=== PATIENT | male | born 1940 | race Caucasian/White ===

== ENCOUNTER → 2019-09-08 | Outpatient (CLI) | payer OTHER ==
[~2019-09-08] MED LIST: REGADENOSON 0.4 MG/5 ML SYRINGE ONE
== END | disposition home or self-care (01) ==
LOC: CFH 08:15
PROVIDERS: ATTEND Physician Assistant Medical
DX: I21.09 ST elevation (STEMI) myocardial infarction involving other coronary artery of anterior wall (principal); I10 Essential (primary) hypertension; I34.0 Nonrheumatic mitral (valve) insufficiency
CPT/HCPCS: 78452; 93017; A9502; J2785

== ENCOUNTER 2019-09-30 09:36 | Inpatient (IN) | payer MEDICARE, OTHER ==
[~2019-09-30] VITALS: Ht 177.8 cm; Wt 77.7 kg
[2019-09-30] MEDS ORDERED: SODIUM CHLORIDE 0.9% 1,000 ML IV SCH (11:00)
[2019-09-30 12:03] VITALS: BP 172/85
[2019-09-30] MEDS ORDERED: VERAPAMIL 2.5 MG/ML, 2ML ONE (12:16)
[2019-09-30] MEDS ORDERED: FENTANYL PF 100 MCG/2ML ONE (12:16)
[2019-09-30] MEDS ORDERED: MIDAZOLAM 1 MG/ML, 2ML ONE (12:16)
[2019-09-30] MEDS ORDERED: LIDOCAINE-MPF 1%, 5ML ONE (12:16)
[2019-09-30] MEDS ORDERED: HEPARIN 1,000 UNITS/ML, 10ML ONE (12:16)
[2019-09-30] MEDS ORDERED: FURO20TA3 PO (12:33)
[2019-09-30] MEDS ORDERED: TAMS-11 PO (12:33)
[2019-09-30] MEDS ORDERED: ATOR40TA78 PO (12:33)
[2019-09-30] MEDS ORDERED: ALBU90AE INH (12:33)
[2019-09-30] MEDS ORDERED: CYAN500T18 PO (12:33)
[2019-09-30] MEDS ORDERED: CLOP75TA PO (12:33)
[2019-09-30] MEDS ORDERED: ALEN70TA6 PO (12:33)
[2019-09-30] MEDS ORDERED: CARB1TAB47 PO (12:33)
[2019-09-30] MEDS ORDERED: CARV6.25 PO (12:33)
[2019-09-30] MEDS ORDERED: RIVA10TA2 PO (12:33)
[2019-09-30] MEDS ORDERED: ALBUTEROL SULFATE 2.5 MG/3 ML NPPB PRN (16:00)
[2019-09-30] MEDS ORDERED: NITROGLYCERIN SINGLE TAB 0.4 MG SL PRN (16:00)
[2019-09-30] MEDS ORDERED: ONDANSETRON 2MG/ML, 2ML IVPush PRN (16:00)
[2019-09-30] MEDS ORDERED: ACETAMINOPHEN 650 MG/20.3 ML UDC PO PRN (16:00)
[2019-09-30] MEDS ORDERED: morphine SULFATE 10 MG/ML, 1ML IV PRN (16:00)
[2019-09-30] MEDS ORDERED: BISACODYL 5 MG EC TABLET PO PRN (16:00)
[2019-09-30] MEDS ORDERED: NITROGLYCERIN 0.4 MG/SPRAY SL PRN (16:00)
[2019-09-30 16:41] VITALS: BP 154/82
[2019-09-30 17:27] LABS: CHOL/HDL RATIO 2.9; CHOLESTEROL, TOTAL 134 mg/dL (140-239); HDL CHOL % 34 % (26-37); HDL CHOLESTEROL (DIRECT) 46 mg/dL (40-60); LDL CHOLESTEROL,CALCULATED 68 mg/dL (54-169); LDL/HDL RATIO 1.5 (0.5-3.0); TRIGLYCERIDES 101 mg/dL (50-200); TROPONIN I 0.032 ng/mL (0.000-0.045); VLDL CHOLESTEROL 20 mg/dL (0-25)
[2019-09-30] MEDS ORDERED: NITROGLYCERIN OINT 2%, 1GM TP PRN (17:30)
[2019-09-30] MEDS ORDERED: HEPARIN 5,000 UNITS/ML, 1ML IV ONE (17:30)
[2019-09-30] MEDS ORDERED: HEPARIN 5,000 UNITS/ML, 1ML IV PRN (17:30)
[2019-09-30] MEDS: HEPARIN 25,000 UNITS/500ML PMX 500 ML IV PRN (17:55)
[2019-09-30] MEDS: ALENDRONATE 70 MG TABLET PO SCH (17:57)
[2019-09-30] MEDS: CARBIDOPA/LEVODOPA CR 25 MG/100 MG TABLET PO SCH ×2 (18:03→21:48)
[2019-09-30 20:06] LABS: TROPONIN I 0.353 ng/mL (0.000-0.045)
[2019-09-30] MEDS ORDERED: ATORVASTATIN 40 MG TABLET PO SCH (21:00)
[2019-09-30 21:38] VITALS: BP 123/71
[2019-09-30] MEDS: CARVEDILOL 6.25 MG TABLET PO SCH (21:49)
[2019-09-30] MEDS: SODIUM CHLORIDE FLUSH 10ML SYR IVF SCH (21:50)
[2019-09-30] MEDS: FUROSEMIDE 20 MG TABLET PO SCH (21:50)
[2019-09-30] MEDS: ATORVASTATIN 80 MG TABLET PO SCH (21:50)
[2019-10-01 00:28] VITALS: BP 106/63
[2019-10-01] MEDS: CARBIDOPA/LEVODOPA CR 25 MG/100 MG TABLET PO SCH ×4 (06:28→22:24)
[2019-10-01] MEDS: ASPIRIN 81 MG TABLET EC PO SCH (06:28)
[2019-10-01 07:07] VITALS: BP 125/65
[2019-10-01] MEDS: ALENDRONATE 70 MG TABLET PO SCH ×2 (08:12→17:21)
[2019-10-01] MEDS: TAMSULOSIN 0.4 MG CAP.ER.24H PO SCH (08:13)
[2019-10-01] MEDS: FUROSEMIDE 20 MG TABLET PO SCH ×2 (08:13→22:24)
[2019-10-01] MEDS: CARVEDILOL 6.25 MG TABLET PO SCH ×2 (08:13→22:24)
[2019-10-01] MEDS: CYANOCOBALAMIN 1,000 MCG TABLET PO SCH (08:14)
[2019-10-01] MEDS: SODIUM CHLORIDE FLUSH 10ML SYR IVF SCH ×2 (08:14→22:24)
[2019-10-01] MEDS ORDERED: OMEP40CA42 PO (12:48)
[2019-10-01] MEDS ORDERED: CARB1TAB47 PO (12:48)
[2019-10-01] MEDS ORDERED: CYAN500T54 PO (12:48)
[2019-10-01] MEDS ORDERED: CARB1TAB5 PO (12:48)
[2019-10-01] MEDS ORDERED: FURO20TA3 PO (12:48)
[2019-10-01] MEDS ORDERED: SENN8.6T98 PO (12:48)
[2019-10-01 13:45] VITALS: BP 118/64
[2019-10-01 18:44] VITALS: BP 114/66
[2019-10-01] MEDS: HEPARIN 25,000 UNITS/500ML PMX 500 ML IV PRN (19:30)
[2019-10-01] MEDS: ATORVASTATIN 80 MG TABLET PO SCH (22:24)
[2019-10-02 02:24] VITALS: BP 108/64
[2019-10-02 05:27] LABS: BASOPHILS # (AUTO) 0.02 x10^3/uL (0-0.1); BASOPHILS % (AUTO) 0 % (0-1); EOSINOPHILS % (AUTO) 3 % (1-7); LYMPHOCYTES # (AUTO) 1.07 x10^3/uL (1-3.4); LYMPHOCYTES % (AUTO) 28 % (22-44); MD NO; MEAN CORPUSCULAR HEMOGLOBIN 31.8 pg (27.5-34.5); MEAN CORPUSCULAR HGB CONC 33.2 g/dL (33.2-36.2); MEAN PLATELET VOLUME 7.8 fL (7.4-10.4); MONOCYTES # (AUTO) 0.48 x10^3/uL (0.2-0.8); MONOCYTES % (AUTO) 12 % (2-9); NEUTROPHILS # (AUTO) 2.23 x10^3/uL (1.8-6.8); NEUTROPHILS % (AUTO) 57 % (42-75); PLATELET COUNT 165 x10^3/uL (130-400); RED BLOOD COUNT 3.73 x10^6/uL (4.38-5.82); RED CELL DISTRIBUTION WIDTH 13.9 % (9.4-14.8)
[2019-10-02 05:40] LABS: ALBUMIN 3.4 g/dL (3.4-5.0); ANION GAP 6 mmol/L (5-15); CALCIUM 8.5 mg/dL (8.5-10.1); CHLORIDE 108 mmol/L (98-107)
[2019-10-02 05:44] LABS: ALANINE AMINOTRANSFERASE 10 U/L (12-78); ALKALINE PHOSPHATASE 79 U/L (45-117); BILIRUBIN,TOTAL 2.6 mg/dL (0.2-1.0); CREATININE 1.61 mg/dL (0.7-1.3); TOTAL PROTEIN 6.4 g/dL (6.4-8.2)
[2019-10-02] MEDS: CARBIDOPA/LEVODOPA CR 25 MG/100 MG TABLET PO SCH ×4 (06:35→20:23)
[2019-10-02] MEDS: ASPIRIN 81 MG TABLET EC PO SCH (06:35)
[2019-10-02 07:07] VITALS: BP 116/67
[2019-10-02] MEDS: SODIUM CHLORIDE FLUSH 10ML SYR IVF SCH ×2 (08:10→20:25)
[2019-10-02] MEDS: CARVEDILOL 6.25 MG TABLET PO SCH ×2 (08:10→20:24)
[2019-10-02] MEDS: TAMSULOSIN 0.4 MG CAP.ER.24H PO SCH (08:11)
[2019-10-02] MEDS: CYANOCOBALAMIN 1,000 MCG TABLET PO SCH (08:11)
[2019-10-02] MEDS: FUROSEMIDE 20 MG TABLET PO SCH ×2 (08:11→20:24)
[2019-10-02 14:12] VITALS: BP 95/57
[2019-10-02] MEDS ORDERED: OMNIPAQUE 350 MG/ML, 100ML BOTTLE ONE (15:11)
[2019-10-02] MEDS: HEPARIN 25,000 UNITS/500ML PMX 500 ML IV PRN (19:48)
[2019-10-02 20:15] VITALS: BP 134/64
[2019-10-02] MEDS: ATORVASTATIN 80 MG TABLET PO SCH (20:23)
[2019-10-03 02:54] VITALS: BP 124/75
[2019-10-03 05:05] LABS: ANION GAP 6 mmol/L (5-15); CALCIUM 8.5 mg/dL (8.5-10.1); CHLORIDE 106 mmol/L (98-107)
[2019-10-03] MEDS: ASPIRIN 81 MG TABLET EC PO SCH (05:54)
[2019-10-03] MEDS: CARBIDOPA/LEVODOPA CR 25 MG/100 MG TABLET PO SCH ×4 (05:55→20:10)
[2019-10-03 06:48] VITALS: BP 124/72
[2019-10-03] MEDS ORDERED: CHLORHEXIDINE 15 ML UDC MM PRN (07:00)
[2019-10-03] MEDS ORDERED: INSULIN LISPRO 100 UNITS/ML, PEN SQ-INSULIN SCH (07:00)
[2019-10-03] MEDS ORDERED: METOPROLOL TARTRATE 25 MG TABLET PO ONE (07:00)
[2019-10-03] MEDS ORDERED: VANCOMYCIN 1,100 MG in SODIUM CHLORIDE 0.9% 250 ML IV PRN (07:30)
[2019-10-03] MEDS: MUPIROCIN OINT 2%, 22GM TP SCH ×2 (07:34→23:24)
[2019-10-03 07:44] LABS: BASOPHILS # (AUTO) 0.02 x10^3/uL (0-0.1); BASOPHILS % (AUTO) 1 % (0-1); EOSINOPHILS # (AUTO) 0.09 x10^3/uL (0-0.4); EOSINOPHILS % (AUTO) 2 % (1-7); LYMPHOCYTES # (AUTO) 0.99 x10^3/uL (1-3.4); LYMPHOCYTES % (AUTO) 23 % (22-44); MD NO; MEAN CORPUSCULAR HEMOGLOBIN 31.5 pg (27.5-34.5); MEAN CORPUSCULAR HGB CONC 33.7 g/dL (33.2-36.2); MEAN CORPUSCULAR VOLUME 93.6 fL (81-97); MEAN PLATELET VOLUME 7.1 fL (7.4-10.4); MONOCYTES % (AUTO) 12 % (2-9); NEUTROPHILS # (AUTO) 2.64 x10^3/uL (1.8-6.8); NEUTROPHILS % (AUTO) 62 % (42-75); PLATELET COUNT 171 x10^3/uL (130-400); RED BLOOD COUNT 4.05 x10^6/uL (4.38-5.82); RED CELL DISTRIBUTION WIDTH 13.8 % (9.4-14.8)
[2019-10-03 07:53] LABS: ALANINE AMINOTRANSFERASE 9 U/L (12-78); ALBUMIN 3.6 g/dL (3.4-5.0); ANION GAP 4 mmol/L (5-15); CALCIUM 8.8 mg/dL (8.5-10.1); CHLORIDE 106 mmol/L (98-107); CREATININE 1.73 mg/dL (0.7-1.3)
[2019-10-03 07:56] LABS: ALKALINE PHOSPHATASE 88 U/L (45-117); BILIRUBIN,TOTAL 2.2 mg/dL (0.2-1.0); TOTAL PROTEIN 6.9 g/dL (6.4-8.2)
[2019-10-03 08:03] LABS: MICROSCOPIC NOT IND
[2019-10-03 08:15] LABS: INTERNATIONAL NORMALIZED RATIO 1.02 (0.93-1.1); PROTHROMBIN TIME 10.7 Seconds (9.6-11.5)
[2019-10-03] MEDS: SODIUM CHLORIDE FLUSH 10ML SYR IVF SCH ×4 (09:00→20:16)
[2019-10-03] MEDS: FUROSEMIDE 20 MG TABLET PO SCH ×2 (09:06→20:10)
[2019-10-03] MEDS: TAMSULOSIN 0.4 MG CAP.ER.24H PO SCH (09:06)
[2019-10-03] MEDS: CARVEDILOL 6.25 MG TABLET PO SCH ×2 (09:07→20:10)
[2019-10-03] MEDS: CYANOCOBALAMIN 1,000 MCG TABLET PO SCH (09:08)
[2019-10-03 14:00] VITALS: BP 98/58
[2019-10-03 14:20] VITALS: BP 104/51
[2019-10-03 18:56] VITALS: BP 99/59
[2019-10-03] MEDS: ATORVASTATIN 80 MG TABLET PO SCH (20:10)
[2019-10-03] MEDS: HEPARIN 25,000 UNITS/500ML PMX 500 ML IV PRN (20:23)
[2019-10-04 00:09] VITALS: BP 102/45
[2019-10-04 04:00] VITALS: BP_SYST 118; BP_SYST 128; BP_DIAS 61; BP_DIAS 68
[2019-10-04] MEDS: MUPIROCIN OINT 2%, 22GM TP SCH ×2 (04:14→05:08)
[2019-10-04] MEDS: ASPIRIN 81 MG TABLET EC PO SCH (05:15)
[2019-10-04] MEDS: CARBIDOPA/LEVODOPA CR 25 MG/100 MG TABLET PO SCH ×4 (05:44→22:33)
[2019-10-04] MEDS ORDERED: CEFUROXIME 1.5 GM in SODIUM CHLORIDE 0.9% 50 ML IVPB PRN (07:30)
[2019-10-04] MEDS ORDERED: REGULAR INSULIN 62.5 UNITS in SODIUM CHLORIDE 0.9% 249.375 ML IV PRN ×2 (07:30→12:18)
[2019-10-04] MEDS ORDERED: POTASSIUM CHLORIDE 80 MEQ, SODIUM BICARBONATE 8.4% 10 MEQ, MAGNESIUM SULFATE 0.5 GM, LI... IV PRN (07:30)
[2019-10-04] MEDS ORDERED: DEXMEDETOMIDINE 200 MCG in SODIUM CHLORIDE 0.9% 48 ML IV SCH (07:30)
[2019-10-04] MEDS ORDERED: EPINEPHRINE 2 MG in SODIUM CHLORIDE 0.9% 248 ML IV SCH (07:30)
[2019-10-04] MEDS ORDERED: MANNITOL PMX 20% 500 ML IVPB PRN (07:30)
[2019-10-04] MEDS ORDERED: VANCOMYCIN 1,100 MG in SODIUM CHLORIDE 0.9% 250 ML IVPB PRN (07:30)
[2019-10-04] MEDS ORDERED: ALBUMIN HUMAN 5% 500 ML IV PRN (07:30)
[2019-10-04] MEDS ORDERED: PHENYLEPHRINE 10 MG in SODIUM CHLORIDE 0.9% 249 ML IV PRN ×2 (07:30→12:18)
[2019-10-04] MEDS ORDERED: MAGNESIUM SULFATE 8 MEQ/2 ML, 2ML ONE (07:52)
[2019-10-04] MEDS ORDERED: PROPOFOL 10 MG/ML, 20ML ONE (07:52)
[2019-10-04] MEDS ORDERED: ROCURONIUM 10 MG/ML,10ML ONE (07:52)
[2019-10-04] MEDS ORDERED: PHENYLEPHRINE 10 MG/ML ONE (07:52)
[2019-10-04] MEDS: CYANOCOBALAMIN 1,000 MCG TABLET PO SCH (09:00)
[2019-10-04] MEDS: DOCUSATE 100 MG CAPSULE PO SCH ×2 (09:00→22:33)
[2019-10-04] MEDS: TAMSULOSIN 0.4 MG CAP.ER.24H PO SCH (09:00)
[2019-10-04] MEDS: CARVEDILOL 6.25 MG TABLET PO SCH ×2 (09:00→21:00)
[2019-10-04] MEDS ORDERED: HEPARIN 1,000 UNITS/ML, 10ML IV ONE (09:09)
[2019-10-04] MEDS ORDERED: PAPAVERINE 30 MG/ML, 2ML IVPush ONE (09:11)
[2019-10-04] MEDS ORDERED: MAGNESIUM SULFATE 1 GM/2 ML ONE (09:35)
[2019-10-04] MEDS ORDERED: AMIODARONE 900 MG in DEXTROSE 5% 482 ML IV PRN (10:00)
[2019-10-04] MEDS ORDERED: FILTER 0.22 MICRON IV PRN (10:00)
[2019-10-04] MEDS ORDERED: DOBUTAMINE 250 MG in SODIUM CHLORIDE 0.9% 230 ML IV PRN (12:18)
[2019-10-04] MEDS ORDERED: NITROGLYCERIN/D5W PMX 250 ML IV PRN (12:18)
[2019-10-04] MEDS ORDERED: SODIUM CHLORIDE 0.9% 1,000 ML IV PRN (12:18)
[2019-10-04] MEDS ORDERED: DEXMEDETOMIDINE 200 MCG in SODIUM CHLORIDE 0.9% 48 ML IV PRN (12:18)
[2019-10-04] MEDS ORDERED: VASOPRESSIN 50 UNIT in SODIUM CHLORIDE 0.9% 247.5 ML IV PRN (12:18)
[2019-10-04] MEDS ORDERED: ACETAMINOPHEN 325 MG TABLET PO PRN (12:30)
[2019-10-04] MEDS ORDERED: GLUCAGON 1 MG IM PRN (12:30)
[2019-10-04] MEDS ORDERED: DEXTROSE 4 GM TAB.CHEW PO PRN (12:30)
[2019-10-04] MEDS ORDERED: PROCHLORPERAZINE 5 MG/ML, 2ML IVPush PRN (12:30)
[2019-10-04] MEDS ORDERED: INSULIN REGULAR 100 UNITS/ML, 3ML VIAL IVPush PRN (12:30)
[2019-10-04] MEDS ORDERED: MIDAZOLAM 1 MG/ML, 5ML IVPush PRN (12:30)
[2019-10-04] MEDS ORDERED: morphine SULFATE 10 MG/ML, 1ML IVPush PRN (12:30)
[2019-10-04] MEDS ORDERED: DEXTROSE 50%, 50ML SYRINGE IVPush PRN (12:30)
[2019-10-04] MEDS ORDERED: ACETAMINOPHEN 650 MG SUPP PR PRN (12:30)
[2019-10-04] MEDS: KSCALE TO 4.5 IV SCH ×2 (12:30→18:30)
[2019-10-04] MEDS ORDERED: SODIUM BICARB 8.4%, 50ML SYRINGE IV PRN (12:30)
[2019-10-04] MEDS ORDERED: BISACODYL 10 MG SUPP PR PRN (12:30)
[2019-10-04] MEDS ORDERED: ONDANSETRON 2MG/ML, 2ML IVPush PRN (12:30)
[2019-10-04] MEDS ORDERED: LACTATED RINGERS 1,000 ML IV PRN (12:30)
[2019-10-04 12:56] LABS: GLUCOSE BY BLOOD GAS ANALYZER 171 mg/dL (70-110); HEMOGLOBIN BY BLOOD GAS ANALYZ 9.6 g/dL (14.0-18.0); POTASSIUM BY BLOOD GAS ANALYZR 3.9 mmol/L (3.6-5.5)
[2019-10-04 12:58] LABS: FIO2 97.9 %
[2019-10-04] MEDS: MAGNESIUM SULFATE 1 GM in SODIUM CHLORIDE 0.9% 50 ML IVPB SCH (13:00)
[2019-10-04 13:09] LABS: INTERNATIONAL NORMALIZED RATIO 1.25 (0.93-1.1)
[2019-10-04] MEDS ORDERED: POTASSIUM CHLORIDE PMX 100 ML IV ONE (14:00)
[2019-10-04] MEDS ORDERED: MORPHINE SULFATE 4 MG/ML, 1ML ONE (14:15)
[2019-10-04] MEDS: SODIUM CHLORIDE FLUSH 10ML SYR IVF SCH ×3 (14:29→19:56)
[2019-10-04] MEDS ORDERED: ALBUMIN HUMAN 5% 500 ML IV ONE ×2 (15:00→19:30)
[2019-10-04] MEDS: INSULIN LISPRO 100 UNITS/ML, PEN SQ-INSULIN SCH ×2 (16:00→21:00)
[2019-10-04] MEDS: VANCOMYCIN 1,100 MG in SODIUM CHLORIDE 0.9% 250 ML IVPB SCH (19:51)
[2019-10-04] MEDS: CEFUROXIME 1.5 GM in SODIUM CHLORIDE 0.9% 50 ML IVPB SCH (19:52)
[2019-10-04] MEDS: EPINEPHRINE 2 MG in SODIUM CHLORIDE 0.9% 248 ML IV PRN (20:27)
[2019-10-04] MEDS: OXYcodone IR 5MG TABLET PO PRN (20:37)
[2019-10-04] MEDS ORDERED: ALBUTEROL SULFATE 2.5 MG/3 ML NPPB PRN (21:30)
[2019-10-04] MEDS: ATORVASTATIN 80 MG TABLET PO SCH (22:33)
[2019-10-04] MEDS: MUPIROCIN OINT 2%, 22GM NAS SCH (22:34)
[2019-10-05] VITALS (10 sets, daily range): BP systolic 93–120; BP diastolic 40–77
[2019-10-05] MEDS: KSCALE TO 4.5 IV SCH ×2 (00:30→08:00)
[2019-10-05] MEDS: OXYcodone IR 5MG TABLET PO PRN ×3 (00:57→13:13)
[2019-10-05] MEDS: CARBIDOPA/LEVODOPA CR 25 MG/100 MG TABLET PO SCH ×4 (06:00→21:16)
[2019-10-05] MEDS: EPINEPHRINE 2 MG in SODIUM CHLORIDE 0.9% 248 ML IV PRN (07:36)
[2019-10-05 07:48] LABS: MEAN CORPUSCULAR HEMOGLOBIN 31.5 pg (27.5-34.5); MEAN CORPUSCULAR HGB CONC 34.3 g/dL (33.2-36.2); MEAN CORPUSCULAR VOLUME 91.8 fL (81-97); MEAN PLATELET VOLUME 7.8 fL (7.4-10.4); PLATELET COUNT 145 x10^3/uL (130-400); RED BLOOD COUNT 3.09 x10^6/uL (4.38-5.82); RED CELL DISTRIBUTION WIDTH 14.5 % (9.4-14.8)
[2019-10-05 07:52] LABS: ALBUMIN 3.3 g/dL (3.4-5.0); ANION GAP 8 mmol/L (5-15); CALCIUM 7.8 mg/dL (8.5-10.1); CHLORIDE 110 mmol/L (98-107); CREATININE 1.93 mg/dL (0.7-1.3)
[2019-10-05 08:19] LABS: BASOPHILS % (AUTO) 0 % (0-1); EOSINOPHILS % (AUTO) 0 % (1-7); LYMPHOCYTES # (AUTO) 0.36 x10^3/uL (1-3.4); LYMPHOCYTES % (AUTO) 3 % (22-44); MD SCAN; MONOCYTES # (AUTO) 1.41 x10^3/uL (0.2-0.8); MONOCYTES % (AUTO) 13 % (2-9); NEUTROPHILS # (AUTO) 9.43 x10^3/uL (1.8-6.8); NEUTROPHILS % (AUTO) 84 % (42-75)
[2019-10-05] MEDS: INSULIN LISPRO 100 UNITS/ML, PEN SQ-INSULIN SCH ×4 (08:21→21:00)
[2019-10-05] MEDS: DOCUSATE 100 MG CAPSULE PO SCH ×2 (08:23→21:15)
[2019-10-05] MEDS: HYDROcodone/APAP 5/325 TABLET PO PRN ×3 (08:23→21:58)
[2019-10-05] MEDS: CYANOCOBALAMIN 1,000 MCG TABLET PO SCH (08:23)
[2019-10-05] MEDS: ASPIRIN 81 MG TABLET EC PO SCH (08:23)
[2019-10-05] MEDS: CEFUROXIME 1.5 GM in SODIUM CHLORIDE 0.9% 50 ML IVPB SCH (08:28)
[2019-10-05] MEDS: CARVEDILOL 6.25 MG TABLET PO SCH ×2 (09:00→20:51)
[2019-10-05] MEDS ORDERED: CALCIUM CHLORIDE 13.6 MEQ in SODIUM CHLORIDE 0.9% 100 ML IV ONE (09:00)
[2019-10-05] MEDS: SODIUM CHLORIDE FLUSH 10ML SYR IVF SCH ×4 (09:30→21:15)
[2019-10-05] MEDS: VANCOMYCIN 1,100 MG in SODIUM CHLORIDE 0.9% 250 ML IVPB SCH (09:30)
[2019-10-05] MEDS: AMIODARONE 200 MG TABLET PO SCH ×2 (10:07→21:16)
[2019-10-05] MEDS: MUPIROCIN OINT 2%, 22GM NAS SCH ×2 (10:08→21:15)
[2019-10-05] MEDS: TAMSULOSIN 0.4 MG CAP.ER.24H PO SCH (11:50)
[2019-10-05] MEDS: MAGNESIUM SULFATE 1 GM in SODIUM CHLORIDE 0.9% 50 ML IVPB SCH (12:30)
[2019-10-05] MEDS: CHLORHEXIDINE 15 ML UDC MM SCH (21:15)
[2019-10-05] MEDS: ATORVASTATIN 80 MG TABLET PO SCH (21:16)
[2019-10-06 04:46] LABS: BASOPHILS # (AUTO) 0.01 x10^3/uL (0-0.1); BASOPHILS % (AUTO) 0 % (0-1); EOSINOPHILS % (AUTO) 0 % (1-7); LYMPHOCYTES # (AUTO) 0.41 x10^3/uL (1-3.4); LYMPHOCYTES % (AUTO) 7 % (22-44); MD NO; MEAN CORPUSCULAR HEMOGLOBIN 31.7 pg (27.5-34.5); MEAN CORPUSCULAR HGB CONC 34.2 g/dL (33.2-36.2); MEAN CORPUSCULAR VOLUME 92.7 fL (81-97); MEAN PLATELET VOLUME 7.9 fL (7.4-10.4); MONOCYTES # (AUTO) 0.75 x10^3/uL (0.2-0.8); MONOCYTES % (AUTO) 12 % (2-9); NEUTROPHILS # (AUTO) 4.86 x10^3/uL (1.8-6.8); NEUTROPHILS % (AUTO) 81 % (42-75); PLATELET COUNT 103 x10^3/uL (130-400); RED BLOOD COUNT 2.79 x10^6/uL (4.38-5.82); RED CELL DISTRIBUTION WIDTH 14.7 % (9.4-14.8)
[2019-10-06 04:51] LABS: ANION GAP 9 mmol/L (5-15); CALCIUM 7.9 mg/dL (8.5-10.1); CHLORIDE 106 mmol/L (98-107); CREATININE 2.05 mg/dL (0.7-1.3)
[2019-10-06] MEDS: INSULIN LISPRO 100 UNITS/ML, PEN SQ-INSULIN SCH ×4 (05:21→20:01)
[2019-10-06] MEDS: CARBIDOPA/LEVODOPA CR 25 MG/100 MG TABLET PO SCH ×4 (05:25→19:58)
[2019-10-06] MEDS: ENOXAPARIN 40 MG/0.4 ML SQ SCH (09:00)
[2019-10-06] MEDS: CHLORHEXIDINE 15 ML UDC MM SCH ×2 (09:00→19:57)
[2019-10-06] MEDS: MUPIROCIN OINT 2%, 22GM NAS SCH ×2 (09:00→19:57)
[2019-10-06] MEDS: SODIUM CHLORIDE FLUSH 10ML SYR IVF SCH ×5 (09:00→20:01)
[2019-10-06] MEDS: FUROSEMIDE 20 MG/2 ML IV SCH ×2 (09:40→18:00)
[2019-10-06] MEDS: DOCUSATE 100 MG CAPSULE PO SCH ×2 (09:41→19:57)
[2019-10-06] MEDS: AMIODARONE 200 MG TABLET PO SCH ×2 (09:41→19:59)
[2019-10-06] MEDS: CYANOCOBALAMIN 1,000 MCG TABLET PO SCH (09:41)
[2019-10-06] MEDS: CARVEDILOL 3.125 MG TABLET PO SCH ×2 (09:41→19:59)
[2019-10-06] MEDS: ASPIRIN 81 MG TABLET EC PO SCH (09:41)
[2019-10-06 13:30] VITALS: BP 151/70
[2019-10-06] MEDS: TAMSULOSIN 0.4 MG CAP.ER.24H PO SCH (13:52)
[2019-10-06] MEDS: MAGNESIUM SULFATE 1 GM in SODIUM CHLORIDE 0.9% 50 ML IVPB SCH (13:53)
[2019-10-06] MEDS ORDERED: INSTRUCTION SEE COMMENTS XX PRN (15:00)
[2019-10-06] MEDS ORDERED: PHARMACY MAY ADJ FOR RENAL FX MC PRN (15:00)
[2019-10-06] MEDS ORDERED: PHARMACY INSTRUCTION MC PRN (15:00)
[2019-10-06] MEDS ORDERED: OXYcodone IR 5MG TABLET PO PRN (15:00)
[2019-10-06] MEDS ORDERED: QUETIAPINE 25MG TABLET PO PRN (15:00)
[2019-10-06 19:51] VITALS: BP 132/71
[2019-10-06] MEDS: MELATONIN 3 MG TABLET PO SCH (19:57)
[2019-10-06] MEDS: ACETAMINOPHEN 325 MG TABLET PO PRN (19:58)
[2019-10-06] MEDS: ATORVASTATIN 80 MG TABLET PO SCH (20:00)
[2019-10-06] MEDS: HYDROcodone/APAP 5/325 TABLET PO PRN (21:07)
[2019-10-07 06:05] VITALS: BP 104/62
[2019-10-07] MEDS: CARBIDOPA/LEVODOPA CR 25 MG/100 MG TABLET PO SCH ×4 (06:12→21:38)
[2019-10-07] MEDS: ACETAMINOPHEN 325 MG TABLET PO PRN (06:13)
[2019-10-07 06:57] LABS: ANION GAP 5 mmol/L (5-15); CALCIUM 8.2 mg/dL (8.5-10.1); CHLORIDE 107 mmol/L (98-107); CREATININE 2.15 mg/dL (0.7-1.3)
[2019-10-07] MEDS: INSULIN LISPRO 100 UNITS/ML, PEN SQ-INSULIN SCH ×4 (07:00→21:22)
[2019-10-07 07:03] LABS: BASOPHILS # (AUTO) 0.01 x10^3/uL (0-0.1); BASOPHILS % (AUTO) 0 % (0-1); EOSINOPHILS # (AUTO) 0.03 x10^3/uL (0-0.4); EOSINOPHILS % (AUTO) 1 % (1-7); LYMPHOCYTES # (AUTO) 0.69 x10^3/uL (1-3.4); LYMPHOCYTES % (AUTO) 12 % (22-44); MD NO; MEAN CORPUSCULAR HEMOGLOBIN 31.2 pg (27.5-34.5); MEAN CORPUSCULAR VOLUME 91.9 fL (81-97); MONOCYTES % (AUTO) 12 % (2-9); NEUTROPHILS % (AUTO) 76 % (42-75); PLATELET COUNT 106 x10^3/uL (130-400); RED CELL DISTRIBUTION WIDTH 14.4 % (9.4-14.8)
[2019-10-07 07:05] VITALS: BP 105/52
[2019-10-07 07:42] LABS: CULTURE INDICATED? YES; MICROSCOPIC INDICATED
[2019-10-07] MEDS: ENOXAPARIN 40 MG/0.4 ML SQ SCH (08:38)
[2019-10-07] MEDS ORDERED: CLOPIDOGREL 75 MG TABLET PO SCH (09:00)
[2019-10-07] MEDS ORDERED: FUROSEMIDE 20 MG/2 ML IV ONE (09:00)
[2019-10-07] MEDS: MUPIROCIN OINT 2%, 22GM NAS SCH ×2 (09:22→21:36)
[2019-10-07] MEDS: SODIUM CHLORIDE FLUSH 10ML SYR IVF SCH ×6 (09:22→21:36)
[2019-10-07] MEDS: CARVEDILOL 3.125 MG TABLET PO SCH ×2 (10:23→21:37)
[2019-10-07] MEDS: BISACODYL 5 MG EC TABLET PO PRN (10:23)
[2019-10-07] MEDS: CHLORHEXIDINE 15 ML UDC MM SCH (10:23)
[2019-10-07] MEDS: AMIODARONE 200 MG TABLET PO SCH ×2 (10:24→21:37)
[2019-10-07] MEDS: TAMSULOSIN 0.4 MG CAP.ER.24H PO SCH (10:24)
[2019-10-07] MEDS: ASPIRIN 81 MG TABLET EC PO SCH (10:24)
[2019-10-07] MEDS: CYANOCOBALAMIN 1,000 MCG TABLET PO SCH (10:24)
[2019-10-07] MEDS: DOCUSATE 100 MG CAPSULE PO SCH ×2 (10:24→21:36)
[2019-10-07 14:25] VITALS: BP 105/55
[2019-10-07] MEDS: FUROSEMIDE 20 MG/2 ML IV SCH (15:56)
[2019-10-07 18:57] VITALS: BP 105/50
[2019-10-07 21:13] VITALS: BP 118/67
[2019-10-07] MEDS: MELATONIN 3 MG TABLET PO SCH (21:22)
[2019-10-07] MEDS: ATORVASTATIN 80 MG TABLET PO SCH (21:38)
[2019-10-08 00:42] VITALS: BP_SYST 106; BP_SYST 93; BP_DIAS 51; BP_DIAS 54
[2019-10-08] MEDS: HYDROcodone/APAP 5/325 TABLET PO PRN ×4 (00:56→21:33)
[2019-10-08 05:14] LABS: BASOPHILS # (AUTO) 0.01 x10^3/uL (0-0.1); BASOPHILS % (AUTO) 0 % (0-1); EOSINOPHILS # (AUTO) 0.07 x10^3/uL (0-0.4); EOSINOPHILS % (AUTO) 2 % (1-7); LYMPHOCYTES # (AUTO) 0.49 x10^3/uL (1-3.4); LYMPHOCYTES % (AUTO) 10 % (22-44); MD NO; MEAN CORPUSCULAR HEMOGLOBIN 31.2 pg (27.5-34.5); MEAN CORPUSCULAR HGB CONC 33.2 g/dL (33.2-36.2); MEAN CORPUSCULAR VOLUME 93.8 fL (81-97); MEAN PLATELET VOLUME 7.8 fL (7.4-10.4); MONOCYTES # (AUTO) 0.46 x10^3/uL (0.2-0.8); MONOCYTES % (AUTO) 9 % (2-9); NEUTROPHILS # (AUTO) 3.91 x10^3/uL (1.8-6.8); NEUTROPHILS % (AUTO) 79 % (42-75); PLATELET COUNT 128 x10^3/uL (130-400); RED BLOOD COUNT 2.52 x10^6/uL (4.38-5.82)
[2019-10-08 05:28] VITALS: BP 106/56
[2019-10-08] MEDS: CARBIDOPA/LEVODOPA CR 25 MG/100 MG TABLET PO SCH ×4 (05:38→21:34)
[2019-10-08 06:09] LABS: ANION GAP 5 mmol/L (5-15); CALCIUM 7.9 mg/dL (8.5-10.1); CHLORIDE 109 mmol/L (98-107); CREATININE 1.86 mg/dL (0.7-1.3)
[2019-10-08 07:37] VITALS: BP 101/57
[2019-10-08] MEDS: INSULIN LISPRO 100 UNITS/ML, PEN SQ-INSULIN SCH ×4 (07:41→21:33)
[2019-10-08] MEDS: TAMSULOSIN 0.4 MG CAP.ER.24H PO SCH (08:47)
[2019-10-08] MEDS: AMIODARONE 200 MG TABLET PO SCH ×2 (08:47→21:31)
[2019-10-08] MEDS: CYANOCOBALAMIN 1,000 MCG TABLET PO SCH (08:49)
[2019-10-08] MEDS: DOCUSATE 100 MG CAPSULE PO SCH ×2 (08:49→21:31)
[2019-10-08] MEDS: CARVEDILOL 3.125 MG TABLET PO SCH ×2 (08:50→21:33)
[2019-10-08] MEDS: FUROSEMIDE 20 MG/2 ML IV SCH ×2 (08:53→16:47)
[2019-10-08] MEDS: SODIUM CHLORIDE FLUSH 10ML SYR IVF SCH ×6 (09:00→21:31)
[2019-10-08] MEDS: ENOXAPARIN 40 MG/0.4 ML SQ SCH (09:06)
[2019-10-08] MEDS: ASPIRIN 81 MG TABLET EC PO SCH (09:07)
[2019-10-08] MEDS: CLOPIDOGREL 75 MG TABLET PO SCH (09:08)
[2019-10-08] MEDS: BISACODYL 5 MG EC TABLET PO PRN (09:08)
[2019-10-08] MEDS: POTASSIUM CHLORIDE 20 MEQ TAB.ER.PRT PO SCH (10:52)
[2019-10-08] MEDS: MUPIROCIN OINT 2%, 22GM NAS SCH ×2 (11:06→21:31)
[2019-10-08 13:40] VITALS: BP 97/55
[2019-10-08] MEDS ORDERED: ARTIFICIAL TEARS 15 DROP/ML BOTTLE OP PRN (18:00)
[2019-10-08 21:04] VITALS: BP 121/63
[2019-10-08] MEDS: MELATONIN 3 MG TABLET PO SCH (21:33)
[2019-10-08] MEDS: ATORVASTATIN 80 MG TABLET PO SCH (21:33)
[2019-10-09 03:13] VITALS: BP 100/54
[2019-10-09] MEDS: HYDROcodone/APAP 5/325 TABLET PO PRN ×3 (03:43→22:23)
[2019-10-09 05:34] LABS: BASOPHILS # (AUTO) 0.02 x10^3/uL (0-0.1); BASOPHILS % (AUTO) 1 % (0-1); EOSINOPHILS # (AUTO) 0.14 x10^3/uL (0-0.4); EOSINOPHILS % (AUTO) 3 % (1-7); LYMPHOCYTES # (AUTO) 0.57 x10^3/uL (1-3.4); LYMPHOCYTES % (AUTO) 14 % (22-44); MD NO; MEAN CORPUSCULAR HEMOGLOBIN 31.2 pg (27.5-34.5); MEAN CORPUSCULAR HGB CONC 33.3 g/dL (33.2-36.2); MEAN CORPUSCULAR VOLUME 93.8 fL (81-97); MEAN PLATELET VOLUME 7.5 fL (7.4-10.4); MONOCYTES % (AUTO) 12 % (2-9); NEUTROPHILS # (AUTO) 2.98 x10^3/uL (1.8-6.8); NEUTROPHILS % (AUTO) 71 % (42-75); PLATELET COUNT 159 x10^3/uL (130-400); RED BLOOD COUNT 2.55 x10^6/uL (4.38-5.82); RED CELL DISTRIBUTION WIDTH 14.2 % (9.4-14.8)
[2019-10-09 05:38] LABS: CHLORIDE 107 mmol/L (98-107)
[2019-10-09 05:39] LABS: ANION GAP 6 mmol/L (5-15); CALCIUM 7.8 mg/dL (8.5-10.1); CREATININE 1.78 mg/dL (0.7-1.3)
[2019-10-09] MEDS: ASPIRIN 81 MG TABLET EC PO SCH (06:13)
[2019-10-09] MEDS: CARBIDOPA/LEVODOPA CR 25 MG/100 MG TABLET PO SCH ×4 (06:13→21:55)
[2019-10-09 08:19] VITALS: BP 98/48
[2019-10-09] MEDS ORDERED: POTASSIUM CHLORIDE 10 MEQ TABLET.ER ONE (08:29)
[2019-10-09] MEDS: DOCUSATE 100 MG CAPSULE PO SCH ×2 (08:38→21:55)
[2019-10-09] MEDS: CLOPIDOGREL 75 MG TABLET PO SCH (08:38)
[2019-10-09] MEDS: TAMSULOSIN 0.4 MG CAP.ER.24H PO SCH (08:38)
[2019-10-09] MEDS: AMIODARONE 200 MG TABLET PO SCH ×2 (08:38→21:55)
[2019-10-09] MEDS: POTASSIUM CHLORIDE 20 MEQ TAB.ER.PRT PO SCH (08:39)
[2019-10-09] MEDS: CYANOCOBALAMIN 1,000 MCG TABLET PO SCH (08:39)
[2019-10-09] MEDS: MUPIROCIN OINT 2%, 22GM NAS SCH (08:39)
[2019-10-09] MEDS: ENOXAPARIN 40 MG/0.4 ML SQ SCH (08:39)
[2019-10-09] MEDS: CARVEDILOL 3.125 MG TABLET PO SCH ×2 (08:39→21:56)
[2019-10-09] MEDS: SODIUM CHLORIDE FLUSH 10ML SYR IVF SCH ×6 (08:40→21:57)
[2019-10-09] MEDS: INSULIN LISPRO 100 UNITS/ML, PEN SQ-INSULIN SCH ×4 (08:48→21:00)
[2019-10-09] MEDS: FUROSEMIDE 20 MG TABLET PO SCH ×2 (10:01→16:39)
[2019-10-09 15:21] VITALS: BP 105/53
[2019-10-09 19:13] VITALS: BP 111/58
[2019-10-09] MEDS: MELATONIN 3 MG TABLET PO SCH (21:55)
[2019-10-09] MEDS: ATORVASTATIN 80 MG TABLET PO SCH (21:55)
[2019-10-10 01:36] VITALS: BP 131/64
[2019-10-10] MEDS: HYDROcodone/APAP 5/325 TABLET PO PRN ×2 (04:22→12:58)
[2019-10-10] MEDS: ASPIRIN 81 MG TABLET EC PO SCH (05:42)
[2019-10-10] MEDS: CARBIDOPA/LEVODOPA CR 25 MG/100 MG TABLET PO SCH ×4 (05:42→20:34)
[2019-10-10 06:06] LABS: ANION GAP 7 mmol/L (5-15); CALCIUM 8.1 mg/dL (8.5-10.1); CHLORIDE 107 mmol/L (98-107)
[2019-10-10 06:07] LABS: CREATININE 1.65 mg/dL (0.7-1.3)
[2019-10-10] MEDS: INSULIN LISPRO 100 UNITS/ML, PEN SQ-INSULIN SCH ×4 (07:00→20:34)
[2019-10-10 08:46] VITALS: BP 106/58
[2019-10-10] MEDS: SODIUM CHLORIDE FLUSH 10ML SYR IVF SCH ×4 (09:00→20:35)
[2019-10-10] MEDS: POTASSIUM CHLORIDE 20 MEQ TAB.ER.PRT PO SCH (09:57)
[2019-10-10] MEDS: CARVEDILOL 3.125 MG TABLET PO SCH ×2 (09:57→20:34)
[2019-10-10] MEDS: AMIODARONE 200 MG TABLET PO SCH ×2 (09:58→20:35)
[2019-10-10] MEDS: CYANOCOBALAMIN 1,000 MCG TABLET PO SCH (09:58)
[2019-10-10] MEDS: TAMSULOSIN 0.4 MG CAP.ER.24H PO SCH (09:59)
[2019-10-10] MEDS: DOCUSATE 100 MG CAPSULE PO SCH ×2 (09:59→20:35)
[2019-10-10] MEDS: FUROSEMIDE 20 MG TABLET PO SCH ×2 (10:03→17:31)
[2019-10-10] MEDS: CLOPIDOGREL 75 MG TABLET PO SCH (10:07)
[2019-10-10] MEDS: ENOXAPARIN 40 MG/0.4 ML SQ SCH (10:07)
[2019-10-10] MEDS: BISACODYL 5 MG EC TABLET PO PRN (10:20)
[2019-10-10 14:52] VITALS: BP 94/53
[2019-10-10] MEDS: MAGNESIUM HYDROXIDE 8%, 30ML UDC PO PRN (17:31)
[2019-10-10 18:35] VITALS: BP 109/59
[2019-10-10] MEDS: MELATONIN 3 MG TABLET PO SCH (20:34)
[2019-10-10] MEDS: ATORVASTATIN 80 MG TABLET PO SCH (20:46)
[2019-10-11 01:12] VITALS: BP 109/58
[2019-10-11] MEDS: HYDROcodone/APAP 5/325 TABLET PO PRN (04:15)
[2019-10-11 06:00] LABS: BASOPHILS # (AUTO) 0.01 x10^3/uL (0-0.1); BASOPHILS % (AUTO) 0 % (0-1); EOSINOPHILS # (AUTO) 0.14 x10^3/uL (0-0.4); EOSINOPHILS % (AUTO) 3 % (1-7); LYMPHOCYTES # (AUTO) 0.64 x10^3/uL (1-3.4); LYMPHOCYTES % (AUTO) 14 % (22-44); MD NO; MEAN CORPUSCULAR HEMOGLOBIN 30.7 pg (27.5-34.5); MEAN CORPUSCULAR HGB CONC 33.2 g/dL (33.2-36.2); MEAN CORPUSCULAR VOLUME 92.4 fL (81-97); MEAN PLATELET VOLUME 7.1 fL (7.4-10.4); MONOCYTES # (AUTO) 0.56 x10^3/uL (0.2-0.8); MONOCYTES % (AUTO) 12 % (2-9); NEUTROPHILS # (AUTO) 3.21 x10^3/uL (1.8-6.8); NEUTROPHILS % (AUTO) 70 % (42-75); PLATELET COUNT 211 x10^3/uL (130-400); RED BLOOD COUNT 2.78 x10^6/uL (4.38-5.82); RED CELL DISTRIBUTION WIDTH 14.4 % (9.4-14.8)
[2019-10-11] MEDS: ASPIRIN 81 MG TABLET EC PO SCH (06:05)
[2019-10-11] MEDS: CARBIDOPA/LEVODOPA CR 25 MG/100 MG TABLET PO SCH ×3 (06:05→16:32)
[2019-10-11 06:51] VITALS: BP 123/57
[2019-10-11] MEDS: INSULIN LISPRO 100 UNITS/ML, PEN SQ-INSULIN SCH ×3 (07:00→16:00)
[2019-10-11 07:37] LABS: ANION GAP 8 mmol/L (5-15); CALCIUM 8.2 mg/dL (8.5-10.1); CHLORIDE 108 mmol/L (98-107); CREATININE 1.61 mg/dL (0.7-1.3)
[2019-10-11] MEDS: CLOPIDOGREL 75 MG TABLET PO SCH (09:44)
[2019-10-11] MEDS: POTASSIUM CHLORIDE 20 MEQ TAB.ER.PRT PO SCH (09:44)
[2019-10-11] MEDS: TAMSULOSIN 0.4 MG CAP.ER.24H PO SCH (09:44)
[2019-10-11] MEDS: CYANOCOBALAMIN 1,000 MCG TABLET PO SCH (09:44)
[2019-10-11] MEDS: CARVEDILOL 3.125 MG TABLET PO SCH (09:45)
[2019-10-11] MEDS: AMIODARONE 200 MG TABLET PO SCH (09:45)
[2019-10-11] MEDS: SODIUM CHLORIDE FLUSH 10ML SYR IVF SCH (09:46)
[2019-10-11] MEDS: FUROSEMIDE 20 MG TABLET PO SCH ×2 (09:46→16:32)
[2019-10-11] MEDS: DOCUSATE 100 MG CAPSULE PO SCH (09:56)
[2019-10-11] MEDS: MAGNESIUM HYDROXIDE 8%, 30ML UDC PO PRN (09:56)
[2019-10-11] MEDS: ENOXAPARIN 40 MG/0.4 ML SQ SCH (09:57)
[2019-10-11] MEDS ORDERED: ASPI81TA45 PO (12:58)
[2019-10-11] MEDS ORDERED: DOCU100C33 PO (12:58)
[2019-10-11] MEDS ORDERED: FURO20TA3 PO (12:58)
[2019-10-11] MEDS ORDERED: CARV3.1212 PO (12:58)
[2019-10-11] MEDS ORDERED: POTA20TA6 PO (12:58)
== END 2019-10-11 17:22 | DRG 233 ==
LOC: CACL 09:36 → ORIP 16:01 → 5SO 16:33 → CSU 10-04 09:21 → 5SO 10-06 13:16
PROVIDERS: ADMIT Internal Medicine Cardiovascular Disease; ATTEND Internal Medicine Cardiovascular Disease
PROC: 4A023N7 Measurement of Cardiac Sampling and Pressure, Left Heart, Percutaneous Approach (ICD-10-PCS; 2019-09-30)
PROC: B2111ZZ Fluoroscopy of Multiple Coronary Arteries using Low Osmolar Contrast (ICD-10-PCS; 2019-09-30)
PROC: 02100Z9 Bypass Coronary Artery, One Artery from Left Internal Mammary, Open Approach (ICD-10-PCS; 2019-10-04)
PROC: 06BP4ZZ Excision of Right Saphenous Vein, Percutaneous Endoscopic Approach (ICD-10-PCS; 2019-10-04)
PROC: 5A1221Z Performance of Cardiac Output, Continuous (ICD-10-PCS; 2019-10-04)
PROC: 5A1223Z Performance of Cardiac Pacing, Continuous (ICD-10-PCS; 2019-10-04)
PROC: 03HY32Z Insertion of Monitoring Device into Upper Artery, Percutaneous Approach (ICD-10-PCS; 2019-10-04)
PROC: 05HM33Z Insertion of Infusion Device into Right Internal Jugular Vein, Percutaneous Approach (ICD-10-PCS; 2019-10-04)
PROC: B543ZZA Ultrasonography of Right Jugular Veins, Guidance (ICD-10-PCS; 2019-10-04)
PROC: 021109W Bypass Coronary Artery, Two Arteries from Aorta with Autologous Venous Tissue, Open Approach (ICD-10-PCS; principal; 2019-10-04 07:30)
PROC: 30233R1 Transfusion of Nonautologous Platelets into Peripheral Vein, Percutaneous Approach (ICD-10-PCS; 2019-10-05)
PROC: 30233N1 Transfusion of Nonautologous Red Blood Cells into Peripheral Vein, Percutaneous Approach (ICD-10-PCS; 2019-10-05)
PROC: 0T9B70Z Drainage of Bladder with Drainage Device, Via Natural or Artificial Opening (ICD-10-PCS; 2019-10-07)
DX: I25.110 Atherosclerotic heart disease of native coronary artery with unstable angina pectoris (principal); N17.0 Acute kidney failure with tubular necrosis; I82.412 Acute embolism and thrombosis of left femoral vein; D62 Acute posthemorrhagic anemia; I47.2 Ventricular tachycardia; N17.9 Acute kidney failure, unspecified; I25.82 Chronic total occlusion of coronary artery; J44.9 Chronic obstructive pulmonary disease, unspecified; E11.22 Type 2 diabetes mellitus with diabetic chronic kidney disease; E78.5 Hyperlipidemia, unspecified; F17.210 Nicotine dependence, cigarettes, uncomplicated; G20 Parkinson's disease; G89.29 Other chronic pain; H91.90 Unspecified hearing loss, unspecified ear; I13.10 Hypertensive heart and chronic kidney disease without heart failure, with stage 1 through stage 4 chronic kidney disease, or unspecified chronic kidney disease; I25.2 Old myocardial infarction; I34.0 Nonrheumatic mitral (valve) insufficiency; L89.159 Pressure ulcer of sacral region, unspecified stage; L89.619 Pressure ulcer of right heel, unspecified stage; L89.629 Pressure ulcer of left heel, unspecified stage; N18.9 Chronic kidney disease, unspecified; M54.9 Dorsalgia, unspecified; E11.40 Type 2 diabetes mellitus with diabetic neuropathy, unspecified; Z79.01 Long term (current) use of anticoagulants; Z86.718 Personal history of other venous thrombosis and embolism; Z90.49 Acquired absence of other specified parts of digestive tract; Z95.1 Presence of aortocoronary bypass graft
CPT/HCPCS: 36415; 36600; 93458; J3490; S0017; 70496; 70498; 71045; 71046; 80048; 80053; 80061; 81001; 81003; 82040; 82140; 82330; 82607; 82800; 82803; 82810; 82947; 82962; 83036; 83735; 84132; 84295; 84443; 84484; 85014; 85018; 85025; 85049; 85347; 85520; 85610; 85730; 86850; 86900; 86923; 87081; 87086; 93005; 93312; 93321; 93325; 93880; 93970; 94002; 99156; 99157; C1894; G0378; J0697; J1644; J1650; J1815; J2250; J2405; J2704; J2720; J3010; J3370; J3475; J3480; P9045; P9047; Q9967; C1751; C1760; J0171; J0282; J1940; J2270; J2370; J2440; J2930; J7050; J7060; P9016; P9035